=== PATIENT | female | born 1995 | race Caucasian/White ===

== ENCOUNTER 2017-11-18 10:37 | Emergency (ER) | payer BC ==
--- NOTE | 2017-11-18 11:20 | EDPHY ---
H & P Smoking Status: Never smoked Time Seen by Provider: 11/18/17 10:58 HPI/ROS: CHIEF COMPLAINT: Abdominal pain, vomiting HISTORY OF PRESENT ILLNESS: 22-year-old female presents to the emergency department by private vehicle with multiple episodes of vomiting since last night. The patient states that she was at an [employer] hockey game last night around 9:00 p.m. And developed pain in her lower abdomen. She began vomiting. She states that she has vomited over 30 times throughout the night. No bowel movement. She states that she has been unable to pass gas. She has been urinating however. She has a history of intussusception when she was 3-month- old requiring surgery. She states that she was doing well until about 15 months ago developed an obstruction and required surgical repair. The patient states that this pain feels very similar although she states that is a bit more mild now. No back pain. No urinary symptoms. Unknown last menstrual period. She has Nexplanon in started spotting 2 days ago. REVIEW OF SYSTEMS: Constitutional: No fever, no chills. Eyes: No double or blurry vision. ENT: No sore throat. Respiratory: No cough, no shortness of breath. Cardiac: No chest pain. Gastrointestinal: Abdominal pain, vomiting as above. No diarrhea. Genitourinary: No dysuria. Musculoskeletal: No neck or back pain. Skin: No rashes. Neurological: No headache. (Eloina Burkett) Past Medical/Surgical History: Intussusception at 3-month-old requiring surgery, bowel obstruction 15 months ago requiring surgery (Kwadwo,Eloina M) Social History: Single recently moved from [place] (Kwadwo,Eloina M) Physical Exam: General Appearance: Alert. Afebrile. Mild distress. Eyes: Pupils equal and round. Extraocular motions are all intact. ENT: Mouth: Mucous membranes moist. Respiratory: No wheezing, rhonchi, or rales, lungs are clear to auscultation. Cardiovascular: Regular rate and rhythm. Gastrointestinal: Abdomen is soft. She has tenderness with palpation especially in her right lower quadrant, suprapubic area and some in her left lower quadrant. No rebound tenderness. She is not guarding. No palpable masses. Well-healed surgical incision noted in her right side of her abdomen. There is also a small healed incision just below her umbilicus. Neurological: Alert and oriented x 3, cranial nerves II through XII grossly intact Skin: Warm and dry, no rashes. Musculoskeletal: Nontender to palpate along the cervical, thoracic or lumbar spine. Neck is supple. Extremities: Full range of motion and no peripheral edema. Psychiatric: Patient is oriented X 3, there is no agitation. (Eloina Burkett) Constitutional: Initial Vital Signs Temperature (C) 36.4 C 11/18/17 10:41 Heart Rate 121 H 11/18/17 10:41 Respiratory Rate 18 11/18/17 10:41 Blood Pressure 146/89 H 11/18/17 10:41 O2 Sat (%) 99 11/18/17 10:41 O2 Delivery Mode Room Air Allergies/Adverse Reactions: Sulfa (Sulfonamide Antibiotics) Allergy (Verified 11/18/17 10:40) Home Medications: Medication Instructions Recorded Metoclopramide [Reglan 10 mg tab 10 mg PO Q8 PRN #7 tab 11/18/17 (*)] Nexplanon 11/18/17 Medical Decision Making - Diagnostics Imaging: Discussed imaging studies w/ mid level business analyst Radiologist - Diagnostics Imaging Results: Imaging Impressions Abdomen CT 11/18/17 11:45 Impression: 1. No acute findings in the abdomen or pelvis. 2. Moderate stool in the distal colon. 3. Additional findings as above. Findings discussed with Eloina Burkett PA-C, 11/18/2017 at 14:22. ED Course/Re-evaluation: The patient was evaluated and managed by the physician's perinatal breastfeeding assistant. My cosignature indicates that I reviewed the chart and I agree with the findings and plan of care as documented. I am the secondary supervising physician. ( Becky Galaviz) The case was discussed with Dr. Becky Galaviz, secondary supervising physician , who did not directly evaluate the patient but agrees with treatment and plan. Patient is concerned about possible recurring obstruction. Dr. Becky Galaviz recommended CT scan. CT imaging reveals no evidence of obstruction. Patient continues to have ongoing pain and nausea. I spoke with the on-call surgeon, Dr. Rodriguez, who also came to evaluate the patient. He recommends giving the patient IV Reglan. If she continues to feel nauseous and is unable to tolerate p.o. Fluids she will be admitted to the hospitalist. Patient is feeling much better. She is tolerating p.o. Fluids. She was given follow-up information. She understands to return if she develops recurring symptoms specifically worsening abdominal pain, vomiting, fever or if she feels worse. Urinalysis reveals 3+ bacteria with 5-10 white blood cells. She has no urinary symptoms. She elected to obtain urine culture and not start antibiotics and will call for the results of this in 48 hr. (Eloina Burkett) Differential Diagnosis: Including but not limited to bowel obstruction, acute appendicitis, dehydration , electrolyte abnormality, constipation, urinary tract infection, pyelonephritis (Eloina Burkett) - Data Points Laboratory Results: Laboratory Results 11/18/17 10:55 11/18/17 10:55 11/18/17 11/18/17 11/18/17 11:40 10:55 10:55 WBC RBC Hgb Hct MCV MCH MCHC RDW Plt Count MPV Neut % (Auto) Lymph % (Auto) [place] % (Auto) Eos % (Auto) Baso % (Auto) Nucleat RBC Rel Count Absolute Neuts (auto) Absolute Lymphs (auto) Absolute Monos (auto) Absolute Eos (auto) Absolute Basos (auto) Absolute Nucleated RBC Immature Gran % Immature Gran # Sodium Potassium Chloride Carbon Dioxide Anion Gap BUN Creatinine Estimated GFR Glucose Calcium Lipase 216 IU/L IU/L (23-300) TSH 2.050 uIU/mL uIU/mL (0.465-4.680) Beta HCG, Qual NEGATIVE Urine Color YELLOW Urine Appearance HAZY Urine pH 7.0 (5.0-7.5) Ur Specific [place] 1.027 (1.002-1.030) Urine Protein NEGATIVE (NEGATIVE) Urine Ketones TRACE H (NEGATIVE) Urine Blood 1+ H (NEGATIVE) Urine Nitrate POSITIVE H (NEGATIVE) Urine Bilirubin NEGATIVE (NEGATIVE) Urine Urobilinogen NEGATIVE EU EU (0.2-1.0) Ur Leukocyte Esterase NEGATIVE (NEGATIVE) Urine RBC 1-3 /hpf /hpf (0-3) Urine WBC 5-10 /hpf H /hpf (0-3) Ur Epithelial Cells TRACE /lpf /lpf (NONE-1+) Urine Bacteria 3+ /hpf H /hpf (NONE SEEN) Urine Mucus TRACE /lpf /lpf (NONE-1+) Urine Glucose NEGATIVE (NEGATIVE) 11/18/17 11/18/17 10:55 10:55 WBC 14.27 10^3/uL H 10^3/uL (3.80-9.50) RBC 5.42 10^6/uL H 10^6/uL (4.18-5.33) Hgb 17.2 g/dL H g/dL (12.6-16.3) Hct 49.1 % H % (38.0-47.0) MCV 90.6 fL fL (81.5-99.8) MCH 31.7 pg pg (27.9-34.1) MCHC 35.0 g/dL g/dL (32.4-36.7) RDW 11.7 % % (11.5-15.2) Plt Count 328 10^3/uL 10^3/uL (150-400) MPV 10.2 fL fL (8.7-11.7) Neut % (Auto) 92.8 % H % (39.3-74.2) Lymph % (Auto) 4.2 % L % (15.0-45.0) [place] % (Auto) 2.2 % L % (4.5-13.0) Eos % (Auto) 0.1 % L % (0.6-7.6) Baso % (Auto) 0.3 % % (0.3-1.7) Nucleat RBC Rel Count 0.0 % % (0.0-0.2) Absolute Neuts (auto) 13.24 10^3/uL H 10^3/uL (1.70-6.50) Absolute Lymphs (auto) 0.60 10^3/uL L 10^3/uL (1.00-3.00) Absolute Monos (auto) 0.32 10^3/uL 10^3/uL (0.30-0.80) Absolute Eos (auto) 0.01 10^3/uL L 10^3/uL (0.03-0.40) Absolute Basos (auto) 0.04 10^3/uL 10^3/uL (0.02-0.10) Absolute Nucleated RBC 0.00 10^3/uL 10^3/uL (0-0.01) Immature Gran % 0.4 % % (0.0-1.1) Immature Gran # 0.06 10^3/uL 10^3/uL (0.00-0.10) Sodium 142 mEq/L mEq/L (135-145) Potassium 4.1 mEq/L mEq/L (3.5-5.2) Chloride 107 mEq/L mEq/L (97-110) Carbon Dioxide 20 mEq/l L mEq/l (22-31) Anion Gap 15 mEq/L mEq/L (8-16) BUN 16 mg/dL mg/dL (7-23) Creatinine 0.7 mg/dL mg/dL (0.6-1.0) Estimated GFR > 60 Glucose 101 mg/dL H mg/dL (70-100) Calcium 10.1 mg/dL mg/dL (8.5-10.4) Lipase TSH Beta HCG, Qual Urine Color Urine Appearance Urine pH Ur Specific [place] Urine Protein Urine Ketones Urine Blood Urine Nitrate Urine Bilirubin Urine Urobilinogen Ur Leukocyte Esterase Urine RBC Urine WBC Ur Epithelial Cells Urine Bacteria Urine Mucus Urine Glucose Medications Given: Discontinued Medications Hydromorphone HCl (Dilaudid) 0.5 mg IVP EDNOW ONE Stop: 11/18/17 11:36 Last Admin: 11/18/17 11:41 Dose: 0.5 mg Hydromorphone HCl (Dilaudid) 0.5 mg IVP EDNOW ONE Stop: 11/18/17 13:26 Last Admin: 11/18/17 13:31 Dose: 0.5 mg Sodium Chloride (Ns) 1,000 mls @ 0 mls/hr IV ONCE ONE; Wide Open PRN Reason: Protocol Stop: 11/18/17 13:29 Last Admin: 11/18/17 13:29 Dose: 1,000 mls Metoclopramide HCl (Reglan Injection) 10 mg IVP EDNOW ONE Stop: 11/18/17 16:13 Last Admin: 11/18/17 16:32 Dose: 10 mg Ondansetron HCl (Zofran) 4 mg IVP EDNOW ONE Stop: 11/18/17 11:36 Last Admin: 11/18/17 11:41 Dose: 4 mg Ondansetron HCl (Zofran) 4 mg IVP EDNOW ONE Stop: 11/18/17 13:26 Last Admin: 11/18/17 13:30 Dose: 4 mg Departure - Departure Disposition: Home, Routine, Self-Care Clinical Impression: Abdominal pain Qualifiers: Abdominal location: lower abdomen, unspecified Qualified Code(s): R10.30 - Lower abdominal pain, unspecified Condition: Good Instructions: Acute Abdominal Pain (ED) Additional Instructions: Abdominal Pain: Return to the Emergency Department immediately for increasing pain, fever, vomiting, or if not completely better in 8-12 hours. Call [phone] for the results of your urine culture in 48 hr. Referrals: Antoni Randall MD [Medical Doctor] - As per Instructions (General surgeon) Awais Wilhelm MD [Medical Doctor] - 2-3 days, call for appt. (Primary care provider medication administration professional) Prescriptions: Metoclopramide [Reglan 10 mg tab (*)] 10 mg PO Q8 PRN #7 tab PRN Reason: nausea
[2017-11-18 11:29] LABS: PLATELET COUNT 328 10^3/uL (150-400)
[2017-11-18] MEDS ORDERED: HYDROmorphONE/DILAUDID 2 MG/ML INJ IVP ONE ×2 (11:35→13:25)
[2017-11-18] MEDS ORDERED: ONDANSETRON 4 MG/2 ML VIAL IVP ONE ×2 (11:35→13:25)
[2017-11-18] MEDS ORDERED: IOPAMIDOL (ISOVUE-300) 100 ML BTL ONE (11:52)
[2017-11-18] MEDS ORDERED: NS 1,000 ML IV ONE (13:28)
[2017-11-18] MEDS ORDERED: METOCLOPRAMIDE 10 MG/2 ML VIAL IVP ONE (16:12)
--- NOTE | 2017-11-18 16:46 | GCON ---
[f rep st] CONSULTATION REFERRING PHYSICIAN: Becky Galaviz MD REASON FOR CONSULTATION: Recurrent vomiting. HISTORY: The patient is a 22-year-old female who had intussusception treated as a very young girl. Fifteen months ago, she was seen in another part of the [facility]. Her obstruction resolved. Two days later, it came back, and she was explored laparoscopically. Adhesions were lysed. She has done well since that time, except for the fact that she has had an increasing early satiety. Her current history is that she vomited for 1 day last weekend and complained of being distended all week long. She did have hiccups. Last night, she had the onset of right lower quadrant pain, described as sharp and crampy. She was at the [employer]. She them vomited 30 times and finally came to the emergency department today. Note is made she is moving her bowels on a daily basis throughout this process. There is no history of a recent upper respiratory tract infection or diarrhea. There is no history of travel outside the [place] or antibiotic use in the last 6 months. There is no history of inflammatory bowel disease. She has only had 2 prior surgeries mentioned above. She is not hungry at this point and does complain of nausea. SOCIAL HISTORY: She does not smoke tobacco but does smoke marijuana. She has approximately 7 drinks a week, usually 3 during the course of the week and 4 on a weekend. ALLERGIES: Sulfa drugs, manifested by hives. PAST MEDICAL HISTORY: She has an implant for contraception. There is no history of rheumatic fever, tuberculosis, hepatitis, or transfusions. REVIEW OF SYSTEMS: She has heartburn 5/7 days per week. She cannot attribute it to time or certain foods. She does have early satiety. Review of systems otherwise quite negative. There are no limits on her activities. No history of steroid use. PHYSICAL EXAMINATION: GENERAL: On examining her, she is awake and alert. Complains of nausea somewhat with sitting. LUNGS: Clear to auscultation. LYMPH: There is no cervical, supraclavicular, axillary, or inguinal lymphadenopathy. NECK: Thyroid is not enlarged. Carotid bruits are not noted. CHEST: Regular rate and rhythm. Abdomen: Normoactive bowel sounds. Her abdomen is minimally distended. She is minimally tender to cough at a 2 in the right mid abdomen. To palpation, her left upper quadrant is 1/10, left mid abdomen is 1/10, left lower quadrant is 2/10, epigastrium is 2/10, periumbilical area is 3/10, suprapubic area is 310, right upper quadrant is 1/10 , right mid abdomen is 2/10, right lower quadrant is 1/10. IMAGING: Reviewing her CT scan, the oral contrast has made it all way to the colon. There is no evidence of partial high-grade obstruction. She does have mesenteric adenitis. RECOMMENDATIONS: At this point, I recommend that we try Reglan as a promotility agent to see if we can improve gastric emptying and nausea. We will add Protonix. I do suggest that she follow up with a stiff neck loader and that we do check her thyroid functions (TSH). /[id number]/MODL MTDD
[2017-11-18 17:32] VITALS: BP 113/63
== END 2017-11-18 17:32 | disposition home or self-care (01) ==
LOC: MERGE 10:37 → EDSEX 10:37
DX: R10.30 Lower abdominal pain, unspecified (principal); E86.9 Volume depletion, unspecified
CPT/HCPCS: 96374; J1170; J2405; J2765; Q9967